=== PATIENT | female | born 1950 | race Caucasian/White ===

== ENCOUNTER → 2016-12-18 | Outpatient (CLI) | payer BC ==
[~2016-12-18] MED LIST: BLOOD PRESSURE MED; CELEXA; FLONASE16 GM; K-DUR20 ME2; LEXAPRO PO; LOTREL; TRAZODONE; [UNRECOGNIZED DRUG - OTHER]
--- NOTE | ~2016-12-18 | MY11 ---
[facility] A Service of [facility] RADIOLOGY TEXT RESULTS PATIENT: CONOR WHITEHEAD LOCATION: [facility] : 52 UNIT #: [id number] AGE: [address]: Iwona Galvan APRN SEX: F ORDER DR: [id number] [address] [id number] O MR#: [id number] Acc #: [id number] NAME: CNOOR WHITHEEAD : 1950 SEX: F STUDY DATE/TIME: 12/18/2016 13:46 UNIT: [facility] ROOM: STUDY DESCRIPTION: MY Mammogram Screening Dig Gilberto Attending Physician: Iwona Galvan A.P.R.N. Referring Physician: Iwona Galvan A.P.R.N. Ordering Physician: Iwona Galvan A.P.R.N. Primary Care Physician: Iwona Galvan A.P.R.N. MEDICAL IMAGING REPORT This report is preliminary unless electronic signature is present. EXAM Digital screening mammogram 12/18/2016 [facility] HISTORY 66-year-old woman, no risk elevation. Annual screen. COMPARISON Outside mammograms 06/30/2011, 07/12/2012 [facility] Digital imaging of each breast was completed utilizing a two-view examination of each breast in craniocaudal and mediolateral-oblique projections. Review and interpretation of digital mammograms include a second review in conjunction with FDA-approved CAD device. There is a normal parenchymal presentation bilaterally consistent with the patient's age. There are no breast masses imaged and no parenchymal asymmetry is visualized. There are no suspicious microcalcifications and I see no focal architectural disturbance. IMPRESSION Negative screening digital mammogram. One-year followup recommended. Patients over the age of 40 are entered into a reminder system with target due date for the next mammogram. A result letter will also be sent to the patient. BIRADS: 1 Negative Dictated by... Rad Canseco M.D. [facility] A Service of [facility] RADIOLOGY TEXT RESULTS PATIENT: CONOR WHITEHEAD LOCATION: [facility] : 52 UNIT #: [id number] AGE: [address]: Iwona Galvan APRN SEX: F ORDER DR: THIS IS AN ELECTRONICALLY VERIFIED REPORT Rad Canseco M.D. at 12/23/2016 1:03 PM REHANA/fer TD: 12/23/2016 12:33 JOB #: [id number] MEDICAL IMAGING REPORT Page 1 of 1
== END | disposition home or self-care (01) ==
LOC: SMAM 13:00
DX: Z12.31 Encounter for screening mammogram for malignant neoplasm of breast (principal)
CPT/HCPCS: G0202